=== PATIENT | female | born 1980 | race Caucasian/White ===

== ENCOUNTER 2019-07-23 12:09 | Emergency (ER) | payer OTHER ==
[~2019-07-23] VITALS: Ht 170.2 cm; Wt 56.2 kg
[2019-07-23] MEDS ORDERED: ONDANSETRON 2MG/ML, 2ML ONE (12:59)
[2019-07-23] MEDS ORDERED: FAMOTIDINE 20 MG/2 ML IV ONE (13:00)
[2019-07-23] MEDS ORDERED: SODIUM CHLORIDE FLUSH 10ML SYR IVF ONE (13:00)
[2019-07-23] MEDS ORDERED: SODIUM CHLORIDE 0.9% 1,000ML IVBOLUS ONE (13:00)
[2019-07-23] MEDS ORDERED: ONDANSETRON 2MG/ML, 2ML IVPush ONE (13:00)
[2019-07-23] MEDS ORDERED: FAMOTIDINE 20 MG/2 ML ONE (13:00)
[2019-07-23 13:03] LABS: BASOPHILS # (AUTO) 0.01 x10^3/uL (0-0.1); BASOPHILS % (AUTO) 0 % (0-1); EOSINOPHILS # (AUTO) 0.23 x10^3/uL (0-0.4); EOSINOPHILS % (AUTO) 5 % (1-7); LYMPHOCYTES # (AUTO) 1.68 x10^3/uL (1-3.4); LYMPHOCYTES % (AUTO) 32 % (22-44); MD NO; MEAN CORPUSCULAR HEMOGLOBIN 31.1 pg (27.0-34.8); MEAN CORPUSCULAR HGB CONC 33.1 g/dL (32.4-35.8); MEAN CORPUSCULAR VOLUME 94.1 fL (80-100); MEAN PLATELET VOLUME 7.3 fL (7.4-10.4); MONOCYTES # (AUTO) 0.78 x10^3/uL (0.2-0.8); MONOCYTES % (AUTO) 15 % (2-9); NEUTROPHILS # (AUTO) 2.49 x10^3/uL (1.8-6.8); NEUTROPHILS % (AUTO) 48 % (42-75); PLATELET COUNT 309 x10^3/uL (130-400); RED CELL DISTRIBUTION WIDTH 12.9 % (9.6-15.2)
[2019-07-23 13:19] LABS: ALBUMIN 3.2 g/dL (3.4-5.0); ANION GAP 3 mmol/L (5-15); CALCIUM 8.2 mg/dL (8.5-10.1); CHLORIDE 108 mmol/L (98-107)
--- NOTE | 2019-07-23 13:24 | NUR ---
PT RESTING IN BED, MOM AT BEDSIDE. FLUIDS INFUSING WITHOUT ISSUE. PT EDUCATED ON URINE AND STOOL SAMPLE COLLECTION, SUPPLIES AT BEDSIDE. INSTRUCTED TO CALL FOR STAFF SUPPORT IF NECESSARY. CALL LIGHT IN REACH. PT DENIES ANY FURTHER NEEDS OR CONCERNS AT THIS TIME.
[2019-07-23 13:25] LABS: ALANINE AMINOTRANSFERASE 15 U/L (12-78); ALKALINE PHOSPHATASE 37 U/L (45-117); BILIRUBIN,TOTAL 0.3 mg/dL (0.2-1.0); TOTAL PROTEIN 6.8 g/dL (6.4-8.2)
[2019-07-23 15:03] VITALS: BP 107/74
[2019-07-23 15:15] LABS: MICROSCOPIC AUTO
[2019-07-23 15:20] LABS: CULTURE INDICATED? NO
[2019-07-23 16:12] LABS: CLOSTRIDIUM DIFFICILE ANTIGEN POSITIVE; CLOSTRIDIUM DIFFICILE TOXIN NEGATIVE (Negative)
--- NOTE | 2019-07-23 16:12 | NUR ---
LAB CALLED C DIFF ANTIGEN POS AND TOXIN NEG. PROVIDER MADE AWARE.
[2019-07-23] MEDS ORDERED: OMNIPAQUE 350 MG/ML, 100ML BOTTLE ONE (16:15)
== END 2019-07-23 17:20 | disposition home or self-care (01) ==
LOC: ED 12:47
DX: A08.4 Viral intestinal infection, unspecified (principal); E86.9 Volume depletion, unspecified; F17.200 Nicotine dependence, unspecified, uncomplicated
CPT/HCPCS: 36415; 74177; 80053; 81001; 83690; 84703; 85025; 87324; 87493; 96361; 96374; 96375; 99284; J2405; J3490; J7030; Q9967